=== PATIENT | female | born 1975 | race Two or more races ===

== ENCOUNTER 2018-10-27 16:46 | Emergency (ER) | payer OTHER ==
[~2018-10-27] VITALS: Ht 167.6 cm; Wt 56.2 kg
[2018-10-27 16:52] VITALS: BP 94/40; Ht 167.6 cm; Wt 56.2 kg
== END 2018-10-27 18:20 | disposition home or self-care (01) ==
LOC: ED 16:46
DX: S30.1XXA Contusion of abdominal wall, initial encounter (principal); W07.XXXA Fall from chair, initial encounter; Y93.89 Activity, other specified; Y92.89 Other specified places as the place of occurrence of the external cause; Y99.8 Other external cause status

== ENCOUNTER 2018-10-30 10:45 | Emergency (ER) | payer OTHER ==
[~2018-10-30] VITALS: Ht 162.6 cm; Wt 55.8 kg
[2018-10-30 10:55] VITALS: Ht 162.6 cm; Wt 55.8 kg
[2018-10-30 13:04] VITALS: BP 102/62
== END 2018-10-30 13:04 | disposition home or self-care (01) ==
LOC: ED 10:45
DX: Z13.89 Encounter for screening for other disorder (principal)